=== PATIENT | female | born 1975 | race Caucasian/White ===

== ENCOUNTER 2019-08-30 10:52 | Emergency (ER) | payer SELFPAY ==
[~2019-08-30] VITALS: Ht 160 cm; Wt 93.7 kg
--- NOTE | 2019-08-30 11:16 | NUR ---
PATIENT BROUGHT BACK FROM TRIAGE WITH CHIEF COMPLAINT OF RIGHT SIDE ABD PAIN AND NAUSEA THAT STARTED AT 130 AM. PT IS ALERT, ORIENTED, WARM AND DRY. DENIES CP, FEVER, OR RECENT TRAUMA. HX DIVERTICULITIS AND COLON RESECTION.
[2019-08-30] MEDS ORDERED: SODIUM CHLORIDE FLUSH 10ML SYR IVF ONE (11:30)
[2019-08-30] MEDS ORDERED: ONDANSETRON 2MG/ML, 2ML IVPush ONE (11:30)
[2019-08-30] MEDS ORDERED: ONDANSETRON 2MG/ML, 2ML ONE (11:36)
[2019-08-30] MEDS ORDERED: MORPHINE SULFATE 4 MG/ML, 1ML ONE ×2 (11:36→13:01)
--- NOTE | 2019-08-30 11:45 | NUR ---
STEADY AMBULATION TO BATHROOM, URINE SAMPLE COLLECTED.
[2019-08-30 11:48] LABS: BASOPHILS # (AUTO) 0.02 x10^3/uL (0-0.1); BASOPHILS % (AUTO) 0 % (0-1); EOSINOPHILS # (AUTO) 0.06 x10^3/uL (0-0.4); EOSINOPHILS % (AUTO) 0 % (1-7); LYMPHOCYTES # (AUTO) 1.94 x10^3/uL (1-3.4); LYMPHOCYTES % (AUTO) 12 % (22-44); MD NO; MEAN CORPUSCULAR HEMOGLOBIN 34.2 pg (27.0-34.8); MEAN CORPUSCULAR HGB CONC 34.1 g/dL (32.4-35.8); MEAN CORPUSCULAR VOLUME 100.4 fL (80-100); MEAN PLATELET VOLUME 7.5 fL (7.4-10.4); MONOCYTES # (AUTO) 0.82 x10^3/uL (0.2-0.8); MONOCYTES % (AUTO) 5 % (2-9); NEUTROPHILS # (AUTO) 13.64 x10^3/uL (1.8-6.8); NEUTROPHILS % (AUTO) 83 % (42-75); PLATELET COUNT 359 x10^3/uL (130-400); RED CELL DISTRIBUTION WIDTH 13.5 % (9.6-15.2)
[2019-08-30 11:56] LABS: ALANINE AMINOTRANSFERASE 15 U/L (12-78); ALBUMIN 3.3 g/dL (3.4-5.0); ANION GAP 9 mmol/L (5-15); CALCIUM 8.5 mg/dL (8.5-10.1); CHLORIDE 109 mmol/L (98-107); CREATININE 0.83 mg/dL (0.55-1.02)
--- NOTE | 2019-08-30 11:58 | NUR ---
CT WAITING ON LABS AND IV FOR EXAM
[2019-08-30 12:00] LABS: ALKALINE PHOSPHATASE 66 U/L (45-117); BILIRUBIN,TOTAL 0.6 mg/dL (0.2-1.0); TOTAL PROTEIN 7.3 g/dL (6.4-8.2)
[2019-08-30 12:02] LABS: MICROSCOPIC AUTO
[2019-08-30 12:08] LABS: CULTURE INDICATED? YES
[2019-08-30] MEDS: MORPHINE SULFATE 4 MG/ML, 1ML IVPush PRN ×2 (12:13→13:02)
--- NOTE | 2019-08-30 12:30 | NUR ---
PT TO IMAGING
[2019-08-30] MEDS ORDERED: OMNIPAQUE 350 MG/ML, 100ML BOTTLE ONE (12:56)
--- NOTE | 2019-08-30 12:58 | NUR ---
PT RESTING IN BED, BLANKET PROVIDED
--- NOTE | 2019-08-30 13:19 | NUR ---
Olena jorge in [facility] - 08/30/19 at 1353 by [id number] GUARDIAN AT BEDSIDE TOOK PT BELONGINGS TO PATIENTS FACILITY.
--- NOTE | 2019-08-30 14:05 | NUR ---
TASK RN: ALL RESULTS BACK AT THIS TIME, CHART UP FOR RECHECK.
--- NOTE | 2019-08-30 15:09 | NUR ---
PT RESTING IN BED, WAITING UPDATE [facility]
[2019-08-30] MEDS ORDERED: HYDROcodone/APAP 10/325 MG TABLET PO ONE (16:00)
[2019-08-30] MEDS ORDERED: KETOROLAC 30 MG/1 ML IVPush ONE (16:00)
[2019-08-30] MEDS ORDERED: HYDROcodone/APAP 10/325 MG TABLET ONE (16:07)
[2019-08-30] MEDS ORDERED: KETOROLAC 30 MG/1 ML ONE (16:07)
--- NOTE | 2019-08-30 16:11 | NUR ---
ELEN BATISTA AT BEDSIDE TO DISCUSS POC
[2019-08-30 16:12] VITALS: BP 161/75
[2019-08-30] MEDS ORDERED: HEPARIN 5,000 UNITS/ML, 1ML ONE (16:25)
--- NOTE | 2019-08-30 16:25 | NUR ---
DISCHARGE INSTRUCTIONS REVIEWED
[2019-08-30] MEDS ORDERED: HEPARIN 25,000 UNITS/250ML PMX 250 ML ONE (16:26)
== END 2019-08-30 16:27 | disposition home or self-care (01) ==
LOC: ED 11:26
DX: N83.201 Unspecified ovarian cyst, right side (principal); R11.2 Nausea with vomiting, unspecified; F17.200 Nicotine dependence, unspecified, uncomplicated
CPT/HCPCS: 36415; 74177; 80053; 81001; 83605; 83690; 84145; 84703; 85025; 87086; 96374; 96375; 96376; 99284; J1885; J2270; J2405; Q9967